=== PATIENT | female | born 1995 | race African-American/Black ===

== ENCOUNTER 2016-09-20 23:34 | Emergency (ER) | payer OTHER ==
[~2016-09-20] VITALS: Ht 162.6 cm; Wt 68.2 kg
[2016-09-20 23:41] VITALS: BP 131/88; PULSE 81; RESP 18; O2SAT 98
--- NOTE | 2016-09-21 00:04 | ED.REPORT ---
HPI- Female Date of Service Sep 21, 2016 ED Provider: Kamron Hernandez MD Patient is a 20 year old female with recent IUD placement 3 months ago presents to the ED complaining of abdominal cramping for the past 2 hours. She is unsure if the pain related to her IUD or if she is started her period. However, the cramping is more severe than the cramping she would usually experience with a period. The patient reports having some spotting when the IUD was first placed, but she has not had a menstrual period since that time. Patient denies any abnormal vaginal bleeding. Patient last checked the IUD string 1 month ago. Patient would like someone to check if her IUD is in place tonight. She is unsure if she has a copper IUD or a Mirena. Nursing Notes Stated Complaint: ABDOMINAL PAIN Chief Complaint: Female Abdominal Pain Nursing Notes Reviewed: Yes Allergies: Coded Allergies: No Known Allergies (Unverified , 09/20/16) General Time Seen by MD: 00:03 Chief Complaint Abdominal pain... Hx Obtained From: Patient Arrived By: Walk-in Sudden in Onset?: No Onset Occurred: 1 - 4 hours ago Symptom Duration: Since onset Location: : Abdomen lower Quality: Cramping, Painful Severity: Current: Moderate Severity: Maximum: Moderate Sexual History / Control: Reports IUD Recent Healthcare: No recent doctor visit, No recent hospitalization Similar Sx Previous: No Past Medical History Past Medical History IUD placed 3 months ago Past Surgical History none reported Smoking History Unknown if Ever Smoker Social History Other Social History: Good social support, Local resident Ambulatory Status Independent Review of Systems GI: Reports: Abdominal pain, Denies: Vomiting Female: Reports: Pelvic pain, Denies: Vaginal bleeding - abnl Musculoskeletal: Reports: Extremity pain (hand stiffness in the morning) Complete sys rev & neg: except as marked. Physical Exam Initial Vital Signs Vital Signs (First) Date Time Temp Pulse Resp B/P Pulse Ox O2 Delivery O2 Flow Rate FiO2 09/20/16 23:41 36.4 81 18 131/88 98 Room Air Initial VS: Reviewed, Vital signs normal Head / Eyes: Atraumatic, Normocephalic, PERRL ENT: Conjunctiva normal, No scleral icterus Neck: Supple, Full range of motion Skin: Warm, Dry, No cyanosis Neurologic: Alert, Oriented, Nonfocal Psychiatric: Mood/affect normal, Behavior normal, Normal thought content Female Genitourinary: Transportation Lead present (DAVIDSON Castrejon), No bleeding, No cervical motion tend Pelvic Exam: Positive: IUD present (in place) General/Constitutional: Awake, Alert, No acute distress Respiratory / Chest: No respiratory distress, No stridor Cardiovascular: Heart rate NL, Cap refill not delayed Abdomen: Soft, Non-tender, No guarding, No rebound Upper Extremity / MS: No deformity, Neurologic intact, Vascular intact Lower Extremity / Pelvis / MS: Neurologic intact, Vascular intact Ankle / Foot: Atraumatic, No swelling, Non-tender, No deformity, Neurologic intact, Vascular intact Interpretation & Diagnostics Interpretation & Diagnostics: Urine : Negative Urine Dip: All within normal limits. Lab Results Interpretation Test 09/21/16 00:00 Hold Urine Received (Received) Re-Eval/Medical Decision Med Decision/Clinical Course 20-year-old female who complains of crampy pelvic pain ever since she got her IUD put in 2 or 3 months ago. She is concerned about the position of the IUD. On physical examination her abdomen is completely benign. The string is present in the cervix as it should be. She has just a little bit of mucoid discharge and no significant erythema of the cervix. I do not suspect that there is an emergent problem involving the IUD. She is given follow-up with the doctor who put it in to discuss options. As an afterthought, the patient expressed concern about stiffness in her hands in the morning. Exam is basically normal with no swelling, deformity, or erythema of the joints. It is suggested that she follow-up with her primary care doctor for further evaluation. Re-Evaluation/Progress : Time of Eval: 01:18 Patient Status: Condition improved Re-Evaluation/Progress Note: Pelvic exam completed. IUD was in place. Patient also reports.Patient understands and agrees with the plan to be discharged home. Discharge instructions and follow-up discussed. All questions were addressed. Return to the ED warnings given. Counseled Regarding: Diagnosis, Need for follow-up, When/why to return to ED Discharge & Departure Impression: Primary Impression: IUD (intrauterine device) in place Additional Impression: Hand arthritis Disposition: Home Discharge Condition All VS Reviewed: Yes Condition: Stable Patient Instructions: Intrauterine Device (DC) Additional Instructions: The IUD seems to be normally positioned on pelvic exam. Talk to your provider at [facility] if you have further problems with it. The symptoms of stiffness and pain you are having a near hands may be due to arthritis. Talk to your doctor about blood testing for arthritis. Ibuprofen 20 mg 2 pills to 3 times a day or naproxen 220 mg twice a day. This low-dose anti-inflammatory medication may help significantly with the symptoms are having a near hands. Referrals: OTHER,PHYSICIAN [facility] Attestation Portions of this note were transcribed by Catherine Murphy. I, Dr. Hernandez, personally performed the history, physical exam and medical decision-making; I reviewed and confirmed the accuracy of the information in the transcribed note. Signed by: Dewayne Nance, 09/21/2016 0134 copies to: MIN,Kamron Santacruz MD Sep 21, 2016 00:04 Catherine Murphy Sep 21, 2016 00:09
[2016-09-21 01:47] VITALS: BP 123/79; PULSE 81; RESP 18; O2SAT 100
== END 2016-09-21 01:48 | disposition home or self-care (01) ==
LOC: SED 23:34
DX: Z30.431 Encounter for routine checking of intrauterine contraceptive device (principal); M19.049 Primary osteoarthritis, unspecified hand